=== PATIENT | female | born 1990 | race African-American/Black ===

== ENCOUNTER 2016-04-10 18:40 | Emergency (ER) | payer MEDICAID ==
[~2016-04-10] VITALS: Ht 149.9 cm; Wt 81.6 kg
[~2016-04-10 18:40] MED LIST: NORPTMEDS CO
[2016-04-10 19:31] LABS: Urine Bilirubin Negative (Negative); Urine Blood TRACE /uL (Negative); Urine Color Yellow (Yellow); Urine Glucose Normal (Normal); Urine Ketone Negative (Negative); Urine Mucus FEW (None Seen); Urine Nitrite Negative (Negative); Urine RBC <1 /hpf (0 - 4); Urine Squamous Epithelial Cell FEW /hpf (<5); Urine Urobilinogen Normal (Negative)
[2016-04-10 19:33] LABS: Basophils # (auto) 0 uL; Basophils % (auto) 0.4 % (0.0-2.0); DEFINITIVE VIEW TRANSMISSION; Eosinophils # (auto) 0.1 uL; Eosinophils % (auto) 1.7 % (0.0-7.0); Hemoglobin 11.1 g/dL (12.2-16.2); Lymphocytes # (auto) 2.9 uL; Lymphocytes % (auto) 42.6 % (10.0-50.0); Mean Corpuscular Hemoglobin 23.5 pg (28.0-32.0); Mean Corpuscular Hgb Conc. 30.9 g/dL (32.0-36.0); Mean Corpuscular Volume 75.8 fL (80.0-100.0); Mean Platelet Volume 6.9 fL (7.4-10.4); Monocytes # (auto) 0.3 uL; Monocytes % (auto) 4.1 % (0.0-12.0); Neutrophils # (auto) 3.5 uL; Neutrophils % (auto) 51.2 % (37.0-80.0); Platelet Count (auto) 385 10^3/uL (140-450); Red Cell Distribution Width 17.2 % (11.6-16.0); White Blood Cell 6.9 10^3/uL (4.4-10.8)
[2016-04-10 19:47] LABS: Albumin 3.5 g/dL (3.4-5.0); BUN/Creatinine Ratio 13.8; Calcium 8.4 mg/dL (8.5-10.1); Potassium 3.6 mmol/L (3.5-5.1)
[2016-04-10 19:49] LABS: Bilirubin, Total 0.1 mg/dL (0.2-1.0); Total Protein 7.7 g/dL (6.4-8.2)
[2016-04-10 19:59] LABS: Hypochromia Slight; Platelet Estimate Adequate
[2016-04-11] MEDS ORDERED: PANTOPRAZOLE 40 MG TAB PO ONE (08:30)
[2016-04-11 09:45] VITALS: BP 139/97
== END 2016-04-11 10:18 | disposition home or self-care (01) ==
LOC: ER 18:44
DX: K29.70 Gastritis, unspecified, without bleeding (principal); Z88.1 Allergy status to other antibiotic agents; I10 Essential (primary) hypertension
CPT/HCPCS: 36415; 74176; 80053; 81001; 81025; 83690; 85025

== ENCOUNTER 2016-07-29 11:42 | Emergency (ER) | payer MEDICAID ==
[~2016-07-29] VITALS: Ht 149.9 cm; Wt 81.6 kg
[2016-07-29 11:57] VITALS: BP 129/92
[2016-07-29 13:06] LABS: Basophils # (auto) 0 uL; Basophils % (auto) 0.2 % (0.0-2.0); DEFINITIVE VIEW TRANSMISSION; Eosinophils # (auto) 0.1 uL; Eosinophils % (auto) 2.4 % (0.0-7.0); Hematocrit 35.3 % (36.0-46.0); Hemoglobin 11.4 g/dL (12.2-16.2); Lymphocytes # (auto) 2.5 uL; Lymphocytes % (auto) 42.6 % (10.0-50.0); Mean Corpuscular Hemoglobin 24.2 pg (28.0-32.0); Mean Corpuscular Hgb Conc. 32.1 g/dL (32.0-36.0); Mean Corpuscular Volume 75.2 fL (80.0-100.0); Mean Platelet Volume 7.3 fL (7.4-10.4); Monocytes # (auto) 0.3 uL; Monocytes % (auto) 4.8 % (0.0-12.0); Neutrophils # (auto) 2.9 uL; Platelet Count (auto) 447 10^3/uL (140-450); Red Cell Distribution Width 16.7 % (11.6-16.0); White Blood Cell 5.8 10^3/uL (4.4-10.8)
[2016-07-29 13:11] LABS: Urine Bilirubin Negative (Negative); Urine Blood 1+ /uL (Negative); Urine Color Yellow (Yellow); Urine Glucose Normal (Normal); Urine Ketone 1+ (Negative); Urine Mucus FEW (None Seen); Urine Nitrite Negative (Negative); Urine RBC 1 /hpf (0 - 4); Urine Squamous Epithelial Cell FEW /hpf (<5); Urine Urobilinogen Normal (Negative)
[2016-07-29 13:32] LABS: Albumin 3.7 g/dL (3.4-5.0); BUN/Creatinine Ratio 15.8; Bilirubin, Total 0.5 mg/dL (0.2-1.0); Calcium 9.1 mg/dL (8.5-10.1); Potassium 3.3 mmol/L (3.5-5.1); Total Protein 7.3 g/dL (6.4-8.2)
== END 2016-07-29 21:31 | disposition left against medical advice (07) ==
LOC: ER 11:49
DX: R10.9 Unspecified abdominal pain (principal); Z53.21 Procedure and treatment not carried out due to patient leaving prior to being seen by health care provider
CPT/HCPCS: 36415; 80053; 81001; 82150; 83690; 84702; 85025

== ENCOUNTER 2017-05-31 18:38 | Emergency (ER) | payer MEDICAID ==
[~2017-05-31] VITALS: Ht 149.9 cm; Wt 72.6 kg
[2017-05-31 19:59] LABS: Urine Bacteria NONE SEEN /hpf (None Seen); Urine Blood Negative /uL (Negative); Urine Mucus FEW (None Seen); Urine Specific Gravity 1.026 (1.001-1.035); Urine WBC 2 /hpf (0 - 5)
[2017-05-31 22:02] LABS: Basophils # (auto) 0 uL; Eosinophils # (auto) 0.1 uL; Lymphocytes # (auto) 2.3 uL; Lymphocytes % (auto) 30.6 % (10.0-50.0); Monocytes # (auto) 0.3 uL; Neutrophils # (auto) 4.8 uL; Nucleated Red Blood Cells % 0.1 %; White Blood Cell 7.7 10^3/uL (4.4-10.8)
[2017-05-31 22:04] LABS: Basophils % (auto) 0.5 % (0.0-2.0); Eosinophils % (auto) 1.6 % (0.0-7.0); Hemoglobin 11.7 g/dL (12.2-16.2); Mean Corpuscular Hemoglobin 25.2 pg (28.0-32.0); Mean Corpuscular Hgb Conc. 32.4 g/dL (32.0-36.0); Mean Corpuscular Volume 77.8 fL (80.0-100.0); Monocytes % (auto) 4.5 % (0.0-12.0); Neutrophils % (auto) 62.8 % (37.0-80.0); Platelet Count (auto) 361 10^3/uL (140-450); Red Blood Cells 4.63 10^6/uL (4.0-5.20)
[2017-05-31 22:24] LABS: Albumin 3.8 g/dL (3.4-5.0); BUN/Creatinine Ratio 21.4; Calcium 9.3 mg/dL (8.5-10.1); Potassium 4.1 mmol/L (3.5-5.1)
[2017-05-31 22:27] LABS: Bilirubin, Total 0.2 mg/dL (0.2-1.0)
[2017-06-01] MEDS ORDERED: HYDROcodone-ACET 10/325MG TAB PO ONE
[2017-06-01] MEDS ORDERED: ONDANSETRON ODT 4 MG TAB PO ONE
[2017-06-01 02:05] VITALS: BP 123/77
== END 2017-06-01 05:00 | disposition home or self-care (01) ==
LOC: ER 18:38
DX: N93.8 Other specified abnormal uterine and vaginal bleeding (principal); N83.201 Unspecified ovarian cyst, right side; R11.2 Nausea with vomiting, unspecified; I10 Essential (primary) hypertension; Z87.440 Personal history of urinary (tract) infections
CPT/HCPCS: 36415; 74176; 76856; 80053; 81001; 81025; 84702; 85025; 86850; 86900; 86901; 99285; Q0162

== ENCOUNTER 2017-07-09 13:25 | Emergency (ER) | payer MEDICAID ==
[~2017-07-09] VITALS: Ht 149.9 cm; Wt 68.0 kg
[2017-07-09 14:56] LABS: Basophils # (auto) 0 uL; Eosinophils # (auto) 0.1 uL; Hematocrit 36.4 % (36.0-46.0); Monocytes # (auto) 0.3 uL; White Blood Cell 5.8 10^3/uL (4.4-10.8)
[2017-07-09 15:00] LABS: Albumin 3.8 g/dL (3.4-5.0); Anion Gap 7 (5-15); Basophils % (auto) 0.7 % (0.0-2.0); Blood Urea Nitrogen 13 mg/dL (7-18); Calcium 8.5 mg/dL (8.5-10.1); Carbon Dioxide 26 mmol/L (21-32); Chloride 107 mmol/L (98-107); Eosinophils % (auto) 1.9 % (0.0-7.0); Glucose 80 mg/dL (74-106); Hemoglobin 11.7 g/dL (12.2-16.2); Lymphocytes # (auto) 1.9 uL; Lymphocytes % (auto) 32.9 % (10.0-50.0); Magnesium 2.1 mg/dL (1.6-2.6); Mean Corpuscular Hgb Conc. 32.3 g/dL (32.0-36.0); Mean Corpuscular Volume 77.5 fL (80.0-100.0); Monocytes % (auto) 5.3 % (0.0-12.0); Neutrophils # (auto) 3.4 uL; Neutrophils % (auto) 59.2 % (37.0-80.0); Nucleated Red Blood Cells % 0.2 %; Platelet Count (auto) 383 10^3/uL (140-450); Potassium 3.8 mmol/L (3.5-5.1); Red Cell Distribution Width 15.6 % (11.8-14.3); Sodium 140 mmol/L (136-145)
[2017-07-09 15:02] LABS: Alanine Aminotransferase 15 U/L (13-56); Aspartate Aminotransferase 10 U/L (15-37); BUN/Creatinine Ratio 22.8; GFR African American 166 mL/min; GFR Non-African American 137 mL/min
[2017-07-09 15:07] LABS: Alkaline Phosphatase 54 U/L (45-117); Bilirubin, Total 0.3 mg/dL (0.2-1.0); Total Protein 8.3 g/dL (6.4-8.2)
[2017-07-09 18:07] VITALS: BP 148/88
[2017-07-09 19:02] LABS: Urine Bacteria NONE SEEN /hpf (None Seen); Urine Blood 2+ /uL (Negative); Urine Mucus FEW (None Seen); Urine Specific Gravity 1.028 (1.001-1.035); Urine WBC 1 /hpf (0 - 5)
== END 2017-07-09 18:23 | disposition home or self-care (01) ==
LOC: ER 13:30
DX: O03.9 Complete or unspecified spontaneous abortion without complication (principal); O16.1 Unspecified maternal hypertension, first trimester; O26.891 Other specified pregnancy related conditions, first trimester; I50.9 Heart failure, unspecified; R42 Dizziness and giddiness; Z88.1 Allergy status to other antibiotic agents; Z87.440 Personal history of urinary (tract) infections
CPT/HCPCS: 36415; 76801; 76817; 80053; 81001; 81025; 83735; 84484; 84702; 85025; 93005

== ENCOUNTER 2017-08-03 12:55 | Emergency (ER) | payer MEDICAID ==
[~2017-08-03] VITALS: Ht 149.9 cm; Wt 72.6 kg
[2017-08-03 14:26] LABS: Basophils # (auto) 0 uL; Eosinophils # (auto) 0.1 uL; Monocytes # (auto) 0.3 uL; Neutrophils # (auto) 4.8 uL
[2017-08-03 14:27] LABS: Basophils % (auto) 0.5 % (0.0-2.0); Eosinophils % (auto) 1.8 % (0.0-7.0); Hematocrit 34.9 % (36.0-46.0); Hemoglobin 11.2 g/dL (12.2-16.2); Lymphocytes # (auto) 1.7 uL; Lymphocytes % (auto) 24.5 % (10.0-50.0); Mean Corpuscular Hemoglobin 24.6 pg (28.0-32.0); Mean Corpuscular Hgb Conc. 32.1 g/dL (32.0-36.0); Mean Corpuscular Volume 76.6 fL (80.0-100.0); Monocytes % (auto) 4.4 % (0.0-12.0); Neutrophils % (auto) 68.8 % (37.0-80.0); Nucleated Red Blood Cells % 0.1 %; Platelet Count (auto) 372 10^3/uL (140-450); Red Blood Cells 4.56 10^6/uL (4.0-5.20); Red Cell Distribution Width 15.7 % (11.8-14.3); White Blood Cell 6.9 10^3/uL (4.4-10.8)
[2017-08-03 14:32] LABS: Albumin 3.6 g/dL (3.4-5.0); BUN/Creatinine Ratio 14.3; Bilirubin, Total 0.3 mg/dL (0.2-1.0); Calcium 8.4 mg/dL (8.5-10.1); Potassium 3.9 mmol/L (3.5-5.1); Total Protein 7.6 g/dL (6.4-8.2)
[2017-08-03 16:46] VITALS: BP 144/90
== END 2017-08-03 17:01 | disposition home or self-care (01) ==
LOC: ER 13:01
DX: R10.30 Lower abdominal pain, unspecified (principal); I11.0 Hypertensive heart disease with heart failure; I50.9 Heart failure, unspecified; Z88.1 Allergy status to other antibiotic agents
CPT/HCPCS: 36415; 80053; 84702; 85025

== ENCOUNTER 2017-12-03 09:24 | Emergency (ER) | payer MEDICAID ==
[~2017-12-03] VITALS: Ht 149.9 cm; Wt 72.6 kg
[2017-12-03 09:55] LABS: Urine Bacteria NONE SEEN /hpf (None Seen); Urine Blood Negative /uL (Negative); Urine Specific Gravity 1.017 (1.001-1.035); Urine WBC 2 /hpf (0 - 5)
[2017-12-03] MEDS ORDERED: SODIUM CHLORIDE 0.9% 1,000 ML IV ONE (10:01)
[2017-12-03] MEDS ORDERED: MECLIZINE HCL 25 MG TAB PO ONE (10:15)
[2017-12-03 10:29] LABS: Basophils # (auto) 0 uL; Eosinophils # (auto) 0.1 uL; Mean Corpuscular Volume 72.4 fL (80.0-100.0); Monocytes # (auto) 0.3 uL; Neutrophils # (auto) 3.1 uL; White Blood Cell 5.8 10^3/uL (4.4-10.8)
[2017-12-03 10:31] LABS: Basophils % (auto) 0.7 % (0.0-2.0); Eosinophils % (auto) 1.6 % (0.0-7.0); Hematocrit 32.8 % (36.0-46.0); Hemoglobin 10.5 g/dL (12.2-16.2); Lymphocytes # (auto) 2.2 uL; Lymphocytes % (auto) 38.2 % (10.0-50.0); Mean Corpuscular Hemoglobin 23.1 pg (28.0-32.0); Mean Corpuscular Hgb Conc. 31.9 g/dL (32.0-36.0); Monocytes % (auto) 5.8 % (0.0-12.0); Neutrophils % (auto) 53.7 % (37.0-80.0); Nucleated Red Blood Cells % 0.1 %; Platelet Count (auto) 402 10^3/uL (140-450); Red Blood Cells 4.54 10^6/uL (4.0-5.20); Red Cell Distribution Width 17.6 % (11.8-14.3)
[2017-12-03 10:48] LABS: Alanine Aminotransferase 15 U/L (13-56); Albumin 3.7 g/dL (3.4-5.0); Anion Gap 7 (5-15); Aspartate Aminotransferase 16 U/L (15-37); BUN/Creatinine Ratio 15.4; Blood Urea Nitrogen 10 mg/dL (7-18); Calcium 8.4 mg/dL (8.5-10.1); Carbon Dioxide 25 mmol/L (21-32); Chloride 104 mmol/L (98-107); GFR African American 142 mL/min; GFR Non-African American 117 mL/min; Glucose 79 mg/dL (74-106); Potassium 3.8 mmol/L (3.5-5.1); Sodium 136 mmol/L (136-145)
[2017-12-03 10:53] LABS: Alkaline Phosphatase 52 U/L (45-117); Bilirubin, Total 0.4 mg/dL (0.2-1.0); Total Protein 8.3 g/dL (6.4-8.2)
[2017-12-03 12:04] VITALS: BP 123/87
== END 2017-12-03 12:06 | disposition home or self-care (01) ==
LOC: ER 09:24
DX: R42 Dizziness and giddiness (principal); I11.0 Hypertensive heart disease with heart failure; I50.9 Heart failure, unspecified; Z88.1 Allergy status to other antibiotic agents
CPT/HCPCS: 36415; 71046; 80053; 81001; 81025; 82962; 83735; 83880; 84484; 85025; 93005; 96360

== ENCOUNTER 2018-03-02 12:02 | Emergency (ER) | payer SELFPAY ==
[~2018-03-02] VITALS: Ht 149.9 cm; Wt 72.6 kg
[2018-03-02 13:35] LABS: Basophils # (auto) 0 uL; Lymphocytes % (auto) 32.2 % (10.0-50.0); Mean Corpuscular Hemoglobin 22.6 pg (28.0-32.0); Mean Corpuscular Hgb Conc. 31.3 g/dL (32.0-36.0); Mean Corpuscular Volume 72.4 fL (80.0-100.0); Monocytes # (auto) 0.3 uL
[2018-03-02 13:36] LABS: Basophils % (auto) 0.4 % (0.0-2.0); Eosinophils # (auto) 0.2 uL; Eosinophils % (auto) 2.2 % (0.0-7.0); Hematocrit 35.2 % (36.0-46.0); Lymphocytes # (auto) 2.3 uL; Monocytes % (auto) 4.3 % (0.0-12.0); Neutrophils # (auto) 4.3 uL; Neutrophils % (auto) 60.9 % (37.0-80.0); Platelet Count (auto) 425 10^3/uL (140-450); Red Blood Cells 4.86 10^6/uL (4.0-5.20); Red Cell Distribution Width 17.6 % (11.8-14.3); White Blood Cell 7.1 10^3/uL (4.4-10.8)
[2018-03-02 13:40] LABS: Urine Bacteria NONE SEEN /hpf (None Seen); Urine Blood 1+ /uL (Negative); Urine Mucus FEW (None Seen); Urine Specific Gravity 1.029 (1.001-1.035); Urine WBC 2 /hpf (0 - 5)
[2018-03-02 13:55] LABS: Albumin 3.6 g/dL (3.4-5.0); Calcium 8.3 mg/dL (8.5-10.1); Potassium 3.5 mmol/L (3.5-5.1)
[2018-03-02 14:00] LABS: BUN/Creatinine Ratio 17.7; Bilirubin, Total 0.2 mg/dL (0.2-1.0)
[2018-03-02 14:28] VITALS: BP 105/69
== END 2018-03-02 15:13 | disposition home or self-care (01) ==
LOC: ER 12:16
DX: R11.2 Nausea with vomiting, unspecified (principal); I10 Essential (primary) hypertension; Z87.440 Personal history of urinary (tract) infections; Z88.1 Allergy status to other antibiotic agents
CPT/HCPCS: 36415; 80053; 81001; 81025; 84702; 85025

== ENCOUNTER 2018-06-01 20:47 | Emergency (ER) | payer SELFPAY ==
[~2018-06-01] VITALS: Ht 149.9 cm; Wt 63.5 kg
[2018-06-01 22:05] LABS: Basophils # (auto) 0 uL; Basophils % (auto) 0.6 % (0.0-2.0); Eosinophils # (auto) 0.1 uL; Monocytes # (auto) 0.3 uL; Neutrophils # (auto) 3.8 uL
[2018-06-01 22:07] LABS: Eosinophils % (auto) 1.9 % (0.0-7.0); Hematocrit 31.9 % (36.0-46.0); Hemoglobin 10.1 g/dL (12.2-16.2); Lymphocytes # (auto) 2.4 uL; Lymphocytes % (auto) 35.9 % (10.0-50.0); Mean Corpuscular Hemoglobin 22.4 pg (28.0-32.0); Mean Corpuscular Hgb Conc. 31.6 g/dL (32.0-36.0); Mean Corpuscular Volume 70.8 fL (80.0-100.0); Monocytes % (auto) 4.1 % (0.0-12.0); Neutrophils % (auto) 57.5 % (37.0-80.0); Nucleated Red Blood Cells % 0.2 %; Platelet Count (auto) 439 10^3/uL (140-450); Red Cell Distribution Width 18.2 % (11.8-14.3); White Blood Cell 6.6 10^3/uL (4.4-10.8)
[2018-06-01 22:22] LABS: Albumin 3.6 g/dL (3.4-5.0); BUN/Creatinine Ratio 20.4; Calcium 8.4 mg/dL (8.5-10.1); Potassium 3.6 mmol/L (3.5-5.1)
[2018-06-01 22:25] LABS: Bilirubin, Total 0.2 mg/dL (0.2-1.0); Total Protein 7.7 g/dL (6.4-8.2)
[2018-06-01 23:04] LABS: Urine Bacteria MOD /hpf (None Seen); Urine Blood 3+ /uL (Negative); Urine WBC 228 /hpf (0 - 5)
[2018-06-01 23:08] LABS: Urine Specific Gravity 1.025 (1.001-1.035)
[2018-06-02 03:14] LABS: Magnesium 2.1 mg/dL (1.6-2.6)
[2018-06-02 06:06] VITALS: BP 122/72
== END 2018-06-02 06:09 | disposition home or self-care (01) ==
LOC: ER 20:49
DX: N93.9 Abnormal uterine and vaginal bleeding, unspecified (principal); I10 Essential (primary) hypertension; Z88.1 Allergy status to other antibiotic agents
CPT/HCPCS: 36415; 80053; 81001; 81025; 82150; 83690; 83735; 84702; 85025

== ENCOUNTER → 2018-06-21 | Emergency (ER) | payer MEDICAID | END | disposition left against medical advice (07) | LOC: ER 18:24 | DX: N89.8 Other specified noninflammatory disorders of vagina (principal); Z53.21 Procedure and treatment not carried out due to patient leaving prior to being seen by health care provider ==

== ENCOUNTER 2018-08-16 16:44 | Emergency (ER) | payer MEDICAID ==
[~2018-08-16] VITALS: Ht 149.9 cm; Wt 74.4 kg
[2018-08-16 18:17] LABS: Eosinophils # (auto) 0.1 uL; Eosinophils % (auto) 1.8 % (0.0-7.0); Hematocrit 32.5 % (36.0-46.0); Mean Corpuscular Hemoglobin 22.6 pg (28.0-32.0); Mean Corpuscular Volume 72.3 fL (80.0-100.0); Monocytes # (auto) 0.3 uL; Monocytes % (auto) 4.7 % (0.0-12.0); Neutrophils # (auto) 3.9 uL; Red Blood Cells 4.49 10^6/uL (4.0-5.20)
[2018-08-16 18:19] LABS: Basophils # (auto) 0.1 uL; Basophils % (auto) 0.8 % (0.0-2.0); Hemoglobin 10.1 g/dL (12.2-16.2); Lymphocytes # (auto) 2.3 uL; Lymphocytes % (auto) 34.6 % (10.0-50.0); Mean Corpuscular Hgb Conc. 31.2 g/dL (32.0-36.0); Neutrophils % (auto) 58.1 % (37.0-80.0); Nucleated Red Blood Cells % 0.1 %; Platelet Count (auto) 380 10^3/uL (140-450); Red Cell Distribution Width 17.9 % (11.8-14.3); White Blood Cell 6.7 10^3/uL (4.4-10.8)
[2018-08-16 18:34] LABS: Albumin 3.5 g/dL (3.4-5.0); BUN/Creatinine Ratio 17.3; Calcium 8.8 mg/dL (8.5-10.1)
[2018-08-16 18:52] LABS: Bilirubin, Total 0.2 mg/dL (0.2-1.0); Total Protein 7.8 g/dL (6.4-8.2)
[2018-08-16 20:51] LABS: Urine Bacteria NONE SEEN /hpf (None Seen); Urine Blood Negative /uL (Negative); Urine Specific Gravity 1.008 (1.001-1.035); Urine WBC 1 /hpf (0 - 5)
[2018-08-16 23:36] VITALS: BP 132/81
[2018-08-17] MEDS: ACETAMINOPHEN/CODEINE#3 (300/30mg) TAB PO ONE ×2 (00:08→00:13)
== END 2018-08-17 01:12 | disposition home or self-care (01) ==
LOC: ER 16:44
DX: R10.33 Periumbilical pain (principal); I10 Essential (primary) hypertension; Z88.1 Allergy status to other antibiotic agents
CPT/HCPCS: 36415; 74176; 80053; 81001; 81025; 83690; 85025

== ENCOUNTER 2018-08-22 12:13 | Emergency (ER) | payer MEDICAID ==
[~2018-08-22] VITALS: Ht 149.9 cm; Wt 74.4 kg
[2018-08-22 12:56] LABS: Basophils # (auto) 0.1 uL; Basophils % (auto) 1.3 % (0.0-2.0); Eosinophils # (auto) 0.1 uL; Eosinophils % (auto) 1.4 % (0.0-7.0); Hematocrit 31.5 % (36.0-46.0); Hemoglobin 9.8 g/dL (12.2-16.2); Lymphocytes % (auto) 37.2 % (10.0-50.0); Mean Corpuscular Hemoglobin 22.5 pg (28.0-32.0); Mean Corpuscular Hgb Conc. 31.2 g/dL (32.0-36.0); Mean Corpuscular Volume 72.2 fL (80.0-100.0); Monocytes # (auto) 0.3 uL; Monocytes % (auto) 6.2 % (0.0-12.0); Neutrophils % (auto) 53.9 % (37.0-80.0); Nucleated Red Blood Cells % 0.1 %; Platelet Count (auto) 390 10^3/uL (140-450); Red Blood Cells 4.36 10^6/uL (4.0-5.20); Red Cell Distribution Width 17.5 % (11.8-14.3); White Blood Cell 5.5 10^3/uL (4.4-10.8)
[2018-08-22 13:17] LABS: Urine Bacteria NONE SEEN /hpf (None Seen); Urine Blood 2+ /uL (Negative); Urine Budding Yeast MODERATE /hpf (None Seen); Urine WBC 72 /hpf (0 - 5)
[2018-08-22 13:34] LABS: Albumin 3.6 g/dL (3.4-5.0); Potassium 3.3 mmol/L (3.5-5.1)
[2018-08-22 13:37] LABS: BUN/Creatinine Ratio 15.3; Bilirubin, Total 0.2 mg/dL (0.2-1.0); Total Protein 7.7 g/dL (6.4-8.2)
[2018-08-22] MEDS ORDERED: cefTRIAXone 1GM/50ML D5W 50 ML IV ONE (14:30)
[2018-08-22] MEDS ORDERED: POTASSIUM EFFERVESENT TAB 25 MEQ PO ONE (14:30)
[2018-08-22 14:45] VITALS: BP 103/44
== END 2018-08-22 16:17 | disposition home or self-care (01) ==
LOC: ER 12:13
DX: N39.0 Urinary tract infection, site not specified (principal); E87.6 Hypokalemia; I10 Essential (primary) hypertension; Z88.1 Allergy status to other antibiotic agents
CPT/HCPCS: 36415; 80053; 81001; 81025; 84702; 85025; 96365; 99283; J0696; J7030

== ENCOUNTER 2019-12-07 22:23 | Emergency (ER) | payer MEDICAID ==
[~2019-12-07] VITALS: Ht 160 cm; Wt 81.6 kg
[2019-12-07 22:28] VITALS: BP 106/29
[2019-12-07 22:59] LABS: Basophils # (auto) 0.1 10 ^3/uL (0-0.2); Eosinophils # (auto) 0.2 10 ^3/uL (0-0.8); Eosinophils % (auto) 1.6 % (0.0-7.0); Hemoglobin 12.7 g/dL (12.2-16.2); Monocytes # (auto) 0.6 10 ^3/uL (0-1.3); Monocytes % (auto) 6.2 % (0.0-12.0); Red Cell Distribution Width 17.9 % (11.8-14.3)
[2019-12-07] MEDS ORDERED: LORazepam 2MG/ML-1ML VIAL IV ONE (23:00)
[2019-12-07 23:01] LABS: Basophils % (auto) 0.7 % (0.0-2.0); Hematocrit 39.8 % (36.0-46.0); Lymphocytes # (auto) 3.2 10 ^3/uL (0.4-5.4); Lymphocytes % (auto) 31.8 % (10.0-50.0); Mean Corpuscular Hemoglobin 24.2 pg (28.0-32.0); Mean Corpuscular Hgb Conc. 31.9 g/dL (32.0-36.0); Mean Corpuscular Volume 75.8 fL (80.0-100.0); Neutrophils % (auto) 59.7 % (37.0-80.0); Platelet Count (auto) 527 10^3/uL (140-450); Red Blood Cells 5.25 10^6/uL (4.0-5.20)
[2019-12-07 23:19] LABS: Albumin 4.3 g/dL (3.4-5.0); Anion Gap 11 (5-15); Blood Urea Nitrogen 12 mg/dL (7-18); Calcium 9.5 mg/dL (8.5-10.1); Carbon Dioxide 22 mmol/L (21-32); Chloride 105 mmol/L (98-107); Glucose 89 mg/dL (74-106); Potassium 3.5 mmol/L (3.5-5.1); Sodium 138 mmol/L (136-145)
[2019-12-07 23:20] LABS: Urine Bacteria FEW /hpf (None Seen); Urine Blood TRACE /uL (Negative); Urine Mucus FEW (None Seen); Urine WBC 3 /hpf (0 - 5)
[2019-12-07 23:21] LABS: Alanine Aminotransferase 16 U/L (13-56); Aspartate Aminotransferase 13 U/L (15-37); BUN/Creatinine Ratio 16.9; GFR African American 126 mL/min; GFR Non-African American 104 mL/min
[2019-12-07 23:23] LABS: Amphetamine Screen, Urine NEGATIVE (NEGATIVE); Barbiturate Scree,Urine NEGATIVE (NEGATIVE); Benzodiazephine Screen, Urine NEGATIVE (NEGATIVE); Cannabinoid Screen, Urine NEGATIVE (NEGATIVE); Cocaine Screen, Urine NEGATIVE (NEGATIVE); Opiate Scree,Urine NEGATIVE (NEGATIVE); Phencyclidine Screen, Urine NEGATIVE (NEGATIVE)
[2019-12-07 23:23] LABS: INR 0.97 (0.9-1.15); Partial Thromboplastin Time 25.8 sec (23.0-31.2)
[2019-12-07 23:26] LABS: Alkaline Phosphatase 57 U/L (45-117); Bilirubin, Total 0.2 mg/dL (0.2-1.0); Total Protein 9.2 g/dL (6.4-8.2)
[2019-12-08] MEDS ORDERED: ONDANSETRON HCL 4 MG/2 ML VIAL IV ONE
[2019-12-08] MEDS ORDERED: ACETAMINOPHEN 325 MG TAB PO ONE
== END 2019-12-08 01:04 | disposition home or self-care (01) ==
LOC: ER 22:23
DX: F10.920 Alcohol use, unspecified with intoxication, uncomplicated (principal); F41.9 Anxiety disorder, unspecified
CPT/HCPCS: 36415; 80053; 80307; 81001; 81025; 83735; 83880; 84443; 84484; 85025; 85379; 85610; 85730; 96374; 96375; 99284; J2060; J2405

== ENCOUNTER 2019-12-23 17:52 | Emergency (ER) | payer MEDICAID ==
[~2019-12-23] VITALS: Ht 149.9 cm; Wt 78.5 kg
[2019-12-23 18:56] LABS: Urine Bacteria NONE SEEN /hpf (None Seen); Urine Blood 3+ /uL (Negative); Urine WBC 75 /hpf (0 - 5)
[2019-12-23 18:59] LABS: Urine Specific Gravity 1.029 (1.001-1.035)
[2019-12-23 19:37] LABS: Basophils # (auto) 0 10 ^3/uL (0-0.2); Eosinophils # (auto) 0.2 10 ^3/uL (0-0.8); Hemoglobin 11.4 g/dL (12.2-16.2); Lymphocytes # (auto) 1.9 10 ^3/uL (0.4-5.4); Lymphocytes % (auto) 31.9 % (10.0-50.0); Mean Corpuscular Hemoglobin 24.5 pg (28.0-32.0); Monocytes # (auto) 0.3 10 ^3/uL (0-1.3); Neutrophils # (auto) 3.6 10 ^3/uL (1.6-8.6)
[2019-12-23 19:40] LABS: Basophils % (auto) 0.5 % (0.0-2.0); Eosinophils % (auto) 2.7 % (0.0-7.0); Mean Corpuscular Hgb Conc. 32.5 g/dL (32.0-36.0); Mean Corpuscular Volume 75.4 fL (80.0-100.0); Monocytes % (auto) 5.3 % (0.0-12.0); Neutrophils % (auto) 59.6 % (37.0-80.0); Nucleated Red Blood Cells % 0.1 %; Platelet Count (auto) 381 10^3/uL (140-450); Red Blood Cells 4.64 10^6/uL (4.0-5.20); Red Cell Distribution Width 17.6 % (11.8-14.3)
[2019-12-23 21:24] VITALS: BP 143/80
[2019-12-23] MEDS ORDERED: ACETAMINOPHEN 325 MG TAB PO ONE (21:30)
[2019-12-23 23:41] LABS: Albumin 3.8 g/dL (3.4-5.0); BUN/Creatinine Ratio 17.2; Calcium 8.9 mg/dL (8.5-10.1); Potassium 3.7 mmol/L (3.5-5.1)
[2019-12-23 23:44] LABS: Bilirubin, Total 0.3 mg/dL (0.2-1.0); Total Protein 8.2 g/dL (6.4-8.2)
== END 2019-12-23 22:49 | disposition left against medical advice (07) ==
LOC: ER 17:52
DX: O99.011 Anemia complicating pregnancy, first trimester (principal); O23.41 Unspecified infection of urinary tract in pregnancy, first trimester; I10 Essential (primary) hypertension; Z3A.01 Less than 8 weeks gestation of pregnancy; Z88.1 Allergy status to other antibiotic agents
CPT/HCPCS: 36415; 76856; 80053; 81001; 84702; 85025

== ENCOUNTER 2021-03-07 09:26 | Emergency (ER) | payer MEDICAID ==
[~2021-03-07] VITALS: Ht 149.9 cm; Wt 81.6 kg
[2021-03-07 10:19] VITALS: BP 145/97
[2021-03-07 10:24] LABS: Basophils # (auto) 0.1 10 ^3/uL (0-0.2); Basophils % (auto) 1.3 % (0.0-2.0); Eosinophils # (auto) 0.1 10 ^3/uL (0-0.8); Eosinophils % (auto) 1.4 % (0.0-7.0); Hematocrit 33.7 % (36.0-46.0); Hemoglobin 10.8 g/dL (12.2-16.2); Lymphocytes # (auto) 1.7 10 ^3/uL (0.4-5.4); Lymphocytes % (auto) 32.3 % (10.0-50.0); Mean Corpuscular Hemoglobin 22.6 pg (28.0-32.0); Mean Corpuscular Hgb Conc. 32.1 g/dL (32.0-36.0); Mean Corpuscular Volume 70.4 fL (80.0-100.0); Monocytes # (auto) 0.2 10 ^3/uL (0-1.3); Monocytes % (auto) 3.7 % (0.0-12.0); Neutrophils # (auto) 3.2 10 ^3/uL (1.6-8.6); Neutrophils % (auto) 61.3 % (37.0-80.0); Red Blood Cells 4.79 10^6/uL (4.0-5.20); Red Cell Distribution Width 18.2 % (11.8-14.3); White Blood Cell 5.2 10^3/uL (4.4-10.8)
[2021-03-07 10:33] LABS: Calcium 8.4 mg/dL (8.5-10.1); Potassium 3.5 mmol/L (3.5-5.1)
[2021-03-07 10:38] LABS: BUN/Creatinine Ratio 17.7
== END 2021-03-07 11:30 | disposition left against medical advice (07) ==
LOC: ER 09:26
DX: R42 Dizziness and giddiness (principal); R51.9 Headache, unspecified; I10 Essential (primary) hypertension; Z86.2 Personal history of diseases of the blood and blood-forming organs and certain disorders involving the immune mechanism
CPT/HCPCS: 36415; 80048; 81002; 81025; 83880; 84484; 84702; 85025

== ENCOUNTER 2021-03-29 12:18 | Inpatient (IN) | payer MEDICAID ==
[~2021-03-29] VITALS: Ht 165.1 cm; Wt 86.7 kg
[2021-03-29 13:25] LABS: Albumin 3.7 g/dL (3.4-5.0); Calcium 8.8 mg/dL (8.5-10.1); Potassium 3.8 mmol/L (3.5-5.1)
[2021-03-29 13:30] LABS: BUN/Creatinine Ratio 13.4; Bilirubin, Total 0.3 mg/dL (0.2-1.0); Total Protein 7.9 g/dL (6.4-8.2)
[2021-03-29 13:31] LABS: Basophils # (auto) 0 10 ^3/uL (0-0.2); Basophils % (auto) 0.5 % (0.0-2.0); Eosinophils # (auto) 0.1 10 ^3/uL (0-0.8); Monocytes # (auto) 0.4 10 ^3/uL (0-1.3); Neutrophils # (auto) 3.7 10 ^3/uL (1.6-8.6); Nucleated Red Blood Cells % 0.1 %; White Blood Cell 6.3 10^3/uL (4.4-10.8)
[2021-03-29 13:33] LABS: Eosinophils % (auto) 1.7 % (0.0-7.0); Hematocrit 33.3 % (36.0-46.0); Hemoglobin 10.5 g/dL (12.2-16.2); Lymphocytes # (auto) 2.1 10 ^3/uL (0.4-5.4); Mean Corpuscular Hemoglobin 22.3 pg (28.0-32.0); Mean Corpuscular Hgb Conc. 31.6 g/dL (32.0-36.0); Monocytes % (auto) 6.5 % (0.0-12.0); Neutrophils % (auto) 58.3 % (37.0-80.0); Red Blood Cells 4.72 10^6/uL (4.0-5.20); Red Cell Distribution Width 17.8 % (11.8-14.3)
[2021-03-29 13:42] LABS: Mean Corpuscular Volume 70.6 fL (80.0-100.0)
[2021-03-29] MEDS ORDERED: NITROGLYCERIN 0.4 MG SL TAB SL ONE (16:00)
[2021-03-29] MEDS ORDERED: ASPirin 81 mg TAB PO ONE (16:00)
[2021-03-30] MEDS ORDERED: ONDANSETRON HCL 4 MG/2 ML VIAL IV PRN (00:15)
[2021-03-30] MEDS ORDERED: MORPHINE SULFATE INJECTION 2 MG/ML SYRG IV PRN ×2 (00:15→19:00)
[2021-03-30] MEDS ORDERED: NITROGLYCERIN 0.4 MG SL TAB SL PRN (00:15)
[2021-03-30 07:29] LABS: Calcium 8.7 mg/dL (8.5-10.1); Potassium 3.8 mmol/L (3.5-5.1)
[2021-03-30 07:33] LABS: BUN/Creatinine Ratio 20.7
[2021-03-30] MEDS: ASPirin-EC 81 mg tab PO SCH (09:16)
[2021-03-30] MEDS: ENOXAPARIN SOD 40 MG/0.4 ML SYRINGE SC SCH (09:16)
[2021-03-30] MEDS ORDERED: ACETAMINOPHEN 325 MG TAB PO PRN (19:00)
[2021-03-30] MEDS: HYDROcodone-ACET 5/325MG TAB PO PRN (20:12)
[2021-03-30 22:00] VITALS: BP 128/83
[2021-03-30] MEDS ORDERED: ATORVASTATIN 20 MG TAB PO SCH (22:00)
[2021-03-30 22:04] LABS: Amphetamine Screen, Urine NEGATIVE (NEGATIVE); Barbiturate Scree,Urine NEGATIVE (NEGATIVE); Benzodiazephine Screen, Urine NEGATIVE (NEGATIVE); Cannabinoid Screen, Urine NEGATIVE (NEGATIVE); Cocaine Screen, Urine NEGATIVE (NEGATIVE); Opiate Scree,Urine NEGATIVE (NEGATIVE); Phencyclidine Screen, Urine NEGATIVE (NEGATIVE)
[2021-03-30] MEDS ORDERED: PNEUMOCOCCAL VACC POLYS 25 MCG/0.5 ML VIAL IM ONE (23:45)
[2021-03-30] MEDS ORDERED: INFLUENZA QUAD 2021-2022 0.5 ML SYRG IM ONE (23:45)
[2021-03-31] MEDS ORDERED: FERR325T20 PO (00:02)
[2021-03-31] MEDS ORDERED: PROP40TA59 PO (00:02)
[2021-03-31 05:00] VITALS: BP 127/80
[2021-03-31] MEDS: HYDROcodone-ACET 5/325MG TAB PO PRN ×2 (05:18→13:05)
[2021-03-31 07:40] LABS: Basophils # (auto) 0 10 ^3/uL (0-0.2); Eosinophils # (auto) 0.1 10 ^3/uL (0-0.8); Eosinophils % (auto) 2.2 % (0.0-7.0); Lymphocytes # (auto) 2.1 10 ^3/uL (0.4-5.4); Monocytes # (auto) 0.3 10 ^3/uL (0-1.3); Neutrophils # (auto) 2.4 10 ^3/uL (1.6-8.6)
[2021-03-31 07:42] LABS: Basophils % (auto) 0.8 % (0.0-2.0); Hemoglobin 10.7 g/dL (12.2-16.2); Lymphocytes % (auto) 42.5 % (10.0-50.0); Mean Corpuscular Hemoglobin 22.3 pg (28.0-32.0); Mean Corpuscular Hgb Conc. 31.5 g/dL (32.0-36.0); Mean Corpuscular Volume 70.6 fL (80.0-100.0); Monocytes % (auto) 5.6 % (0.0-12.0); Neutrophils % (auto) 48.9 % (37.0-80.0); Nucleated Red Blood Cells % 0.1 %; Red Blood Cells 4.82 10^6/uL (4.0-5.20); Red Cell Distribution Width 18.3 % (11.8-14.3)
[2021-03-31 08:00] VITALS: BP 127/80
[2021-03-31 09:00] VITALS: BP 136/85
[2021-03-31] MEDS: ASPirin-EC 81 mg tab PO SCH (09:21)
[2021-03-31] MEDS: ENOXAPARIN SOD 40 MG/0.4 ML SYRINGE SC SCH (09:22)
[2021-03-31 13:00] VITALS: BP 113/73
[2021-03-31 17:00] VITALS: BP 121/74
== END 2021-03-31 18:45 | disposition home or self-care (01) | DRG 203 ==
LOC: ER 12:18 → TELE 03-30 00:22 → TELE-CENTR 03-30 18:36
PROVIDERS: ADMIT Hospitalist; ATTEND Hospitalist
DX: R07.89 Other chest pain (principal); I11.0 Hypertensive heart disease with heart failure; I50.9 Heart failure, unspecified; D64.9 Anemia, unspecified; R20.0 Anesthesia of skin; Z20.822 Contact with and (suspected) exposure to COVID-19; Z87.440 Personal history of urinary (tract) infections; Z86.73 Personal history of transient ischemic attack (TIA), and cerebral infarction without residual deficits
CPT/HCPCS: 36415; 71046; 72125; 80048; 80053; 80061; 80307; 80320; 81025; 83735; 84484; 85025; 87081; 87426; 93005; 93306; 96374; G0378; J2405

== ENCOUNTER 2021-10-15 16:22 | Inpatient (IN) | payer MEDICAID ==
[~2021-10-15] VITALS: Ht 167.6 cm; Wt 105.0 kg
[~2021-10-15 16:22] MED LIST changes: +FERR325T20 PO; -NORPTMEDS CO; +PROP40TA59 PO
[2021-10-15 17:36] LABS: Basophils # (auto) 0 10 ^3/uL (0-0.2); Basophils % (auto) 0.3 % (0.0-2.0); Eosinophils # (auto) 0.1 10 ^3/uL (0-0.8); Monocytes # (auto) 0.6 10 ^3/uL (0-1.3); White Blood Cell 9.8 10^3/uL (4.4-10.8)
[2021-10-15 17:38] LABS: Eosinophils % (auto) 1.5 % (0.0-7.0); Hematocrit 33.2 % (36.0-46.0); Hemoglobin 10.2 g/dL (12.2-16.2); Lymphocytes # (auto) 1.1 10 ^3/uL (0.4-5.4); Lymphocytes % (auto) 11.3 % (10.0-50.0); Mean Corpuscular Hemoglobin 21.2 pg (28.0-32.0); Mean Corpuscular Hgb Conc. 30.8 g/dL (32.0-36.0); Monocytes % (auto) 6.4 % (0.0-12.0); Neutrophils # (auto) 7.8 10 ^3/uL (1.6-8.6); Neutrophils % (auto) 80.5 % (37.0-80.0); Red Blood Cells 4.81 10^6/uL (4.0-5.20); Red Cell Distribution Width 19.3 % (11.8-14.3)
[2021-10-15 17:51] LABS: Albumin 3.5 g/dL (3.4-5.0); Potassium 3.8 mmol/L (3.5-5.1)
[2021-10-15 17:55] LABS: BUN/Creatinine Ratio 14.3; Bilirubin, Total 0.4 mg/dL (0.2-1.0); Total Protein 7.8 g/dL (6.4-8.2)
[2021-10-15] MEDS ORDERED: NITROGLYCERIN 0.4 MG SL TAB SL ONE (20:00)
[2021-10-15] MEDS ORDERED: ACETAMINOPHEN 325 MG TAB PO ONE (22:00)
[2021-10-16] MEDS ORDERED: NITROGLYCERIN 0.4 MG SL TAB SL PRN (02:45)
[2021-10-16] MEDS ORDERED: ACETAMINOPHEN 325 MG TAB PO PRN (02:45)
[2021-10-16] MEDS ORDERED: MORPHINE SULFATE INJ 2 MG/ml SYRG IV PRN (02:45)
[2021-10-16] MEDS ORDERED: ONDANSETRON HCL 4 MG/2 ML VIAL IV PRN (02:45)
[2021-10-16] MEDS ORDERED: TEMAZEPAM 15 MG CAP PO PRN (02:45)
[2021-10-16 09:59] LABS: Urine Bacteria FEW /hpf (None Seen); Urine Blood 1+ /uL (Negative); Urine Hyaline Cast FEW /lpf (0 - 2); Urine Mucus FEW (None Seen); Urine Specific Gravity 1.028 (1.001-1.035); Urine WBC 3 /hpf (0 - 5)
[2021-10-16] MEDS: LISINOPRIL 10 MG TAB PO SCH ×2 (10:00→10:59)
[2021-10-16] MEDS ORDERED: PANTOPRAZOLE 40 MG TAB PO SCH (10:00)
[2021-10-16] MEDS ORDERED: NIFEdipine ER 30 MG TAB PO SCH (10:00)
[2021-10-16] MEDS ORDERED: APIXABAN 5 MG TAB PO SCH (10:00)
[2021-10-16 10:22] LABS: Alcohol, Urine < 3.0 mg/dL (0-10); Barbiturate Scree,Urine NEGATIVE (NEGATIVE); Cannabinoid Screen, Urine NEGATIVE (NEGATIVE)
[2021-10-16 10:24] LABS: Amphetamine Screen, Urine NEGATIVE (NEGATIVE); Benzodiazephine Screen, Urine NEGATIVE (NEGATIVE); Cocaine Screen, Urine NEGATIVE (NEGATIVE); Opiate Scree,Urine NEGATIVE (NEGATIVE); Phencyclidine Screen, Urine NEGATIVE (NEGATIVE)
[2021-10-16] MEDS ORDERED: APIX5TAB PO (11:09)
[2021-10-16] MEDS ORDERED: LISI-716 PO (11:09)
[2021-10-16 16:00] VITALS: BP 113/70
== END 2021-10-16 16:49 | disposition home or self-care (01) | DRG 203 ==
LOC: ER 16:22 → EDUNIT# 16:22 → EDBD 16:22 → TELE 10-16 02:37
PROVIDERS: ADMIT Nurse Practitioner; ATTEND Internal Medicine Pulmonary Disease
DX: R07.89 Other chest pain (principal); D68.9 Coagulation defect, unspecified; I50.9 Heart failure, unspecified; I11.0 Hypertensive heart disease with heart failure; D64.9 Anemia, unspecified; E66.9 Obesity, unspecified; Z20.822 Contact with and (suspected) exposure to COVID-19; G40.909 Epilepsy, unspecified, not intractable, without status epilepticus; Z80.1 Family history of malignant neoplasm of trachea, bronchus and lung; Z86.718 Personal history of other venous thrombosis and embolism; Z86.73 Personal history of transient ischemic attack (TIA), and cerebral infarction without residual deficits; Z80.3 Family history of malignant neoplasm of breast; Z80.49 Family history of malignant neoplasm of other genital organs; Z82.49 Family history of ischemic heart disease and other diseases of the circulatory system; Z83.3 Family history of diabetes mellitus; Z68.37 Body mass index [BMI] 37.0-37.9, adult; Z88.8 Allergy status to other drugs, medicaments and biological substances
CPT/HCPCS: 36415; 71045; 80053; 80307; 81001; 81025; 83735; 83880; 84484; 85025; 85379; 87804; 93005; G0378

== ENCOUNTER 2022-05-14 16:29 | Emergency (ER) | payer MEDICAID ==
[~2022-05-14] VITALS: Ht 162.6 cm; Wt 90.0 kg
[~2022-05-14 16:29] MED LIST changes: +APIX5TAB PO; +LISI-716 PO
[2022-05-14 17:28] LABS: Urine Bacteria NONE SEEN /hpf (None Seen); Urine Blood 1+ /uL (Negative); Urine Mucus FEW (None Seen); Urine Specific Gravity 1.028 (1.001-1.035); Urine WBC 2 /hpf (0 - 5)
[2022-05-14 17:28] LABS: Basophils # (auto) 0 10 ^3/uL (0-0.2); Eosinophils # (auto) 0.1 10 ^3/uL (0-0.8); Eosinophils % (auto) 1.9 % (0.0-7.0); Hematocrit 36.8 % (36.0-46.0); Hemoglobin 11.7 g/dL (12.2-16.2); Monocytes # (auto) 0.5 10 ^3/uL (0-1.3); Nucleated Red Blood Cells % 0.1 %; Red Cell Distribution Width 15.9 % (11.8-14.3)
[2022-05-14 17:29] LABS: Basophils % (auto) 0.5 % (0.0-2.0); Lymphocytes # (auto) 2.3 10 ^3/uL (0.4-5.4); Lymphocytes % (auto) 30.6 % (10.0-50.0); Mean Corpuscular Hemoglobin 23.8 pg (28.0-32.0); Mean Corpuscular Hgb Conc. 31.7 g/dL (32.0-36.0); Monocytes % (auto) 6.2 % (0.0-12.0); Neutrophils # (auto) 4.6 10 ^3/uL (1.6-8.6); Neutrophils % (auto) 60.8 % (37.0-80.0); Red Blood Cells 4.91 10^6/uL (4.0-5.20); White Blood Cell 7.6 10^3/uL (4.4-10.8)
[2022-05-14] MEDS ORDERED: CEPH-510 PO (20:02)
[2022-05-14 20:24] VITALS: BP 134/87
== END 2022-05-14 20:26 | disposition home or self-care (01) ==
LOC: ER 16:29
DX: O23.41 Unspecified infection of urinary tract in pregnancy, first trimester (principal); O26.891 Other specified pregnancy related conditions, first trimester; N39.0 Urinary tract infection, site not specified; I11.0 Hypertensive heart disease with heart failure; I50.9 Heart failure, unspecified; R10.2 Pelvic and perineal pain; Z3A.01 Less than 8 weeks gestation of pregnancy
CPT/HCPCS: 36415; 80320; 81001; 81025; 84702; 85025

== ENCOUNTER 2022-09-20 20:34 | Observation (INO) | payer MEDICAID ==
[~2022-09-20] VITALS: Ht 149.9 cm; Wt 93.4 kg
[~2022-09-20 20:34] MED LIST changes: +CEPH-510 PO; -LISI-716 PO; +LISI10TA34 PO; -PROP40TA59 PO; +PROP40TA6 PO
[2022-09-20 21:14] LABS: Urine Bacteria FEW /hpf (None Seen); Urine Blood TRACE /uL (Negative); Urine Mucus FEW (None Seen); Urine WBC 2 /hpf (0 - 5)
[2022-09-20] MEDS ORDERED: PREN-96 PO (22:06)
[2022-09-20] MEDS ORDERED: ASPI-543 PO (22:06)
== END 2022-09-20 22:22 | disposition home or self-care (01) ==
LOC: LDRP 20:34
PROVIDERS: ADMIT Obstetrics & Gynecology; ATTEND Obstetrics & Gynecology
DX: O62.9 Abnormality of forces of labor, unspecified (principal); O21.2 Late vomiting of pregnancy; O26.892 Other specified pregnancy related conditions, second trimester; R42 Dizziness and giddiness; R51.9 Headache, unspecified; O99.412 Diseases of the circulatory system complicating pregnancy, second trimester; I50.9 Heart failure, unspecified; O99.322 Drug use complicating pregnancy, second trimester; F12.90 Cannabis use, unspecified, uncomplicated; Z3A.25 25 weeks gestation of pregnancy
CPT/HCPCS: 59025; 81001; 81002; 94760; G0378

== ENCOUNTER 2024-06-30 12:51 | Emergency (ER) | payer MEDICAID ==
[~2024-06-30] VITALS: Ht 170.2 cm; Wt 91.0 kg
[~2024-06-30 12:51] MED LIST changes: +ASPI-543 PO; +PREN-96 PO
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
[2024-06-30] MEDS: KETOROLAC TROMETH 30 MG/ML 1ML VIAL IV ONE (14:32)
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
[2024-06-30] MEDS ORDERED: IBUP-1456 PO (15:34)
[2024-06-30] MEDS ORDERED: METH-1182 PO (15:34)
[2024-06-30 15:46] VITALS: BP 149/80; PULSE 94; RESP 17; TEMP 98.4; O2SAT 96
== END 2024-06-30 15:51 | disposition home or self-care (01) ==
LOC: ER 12:51 → EDBD 12:51 → ER 15:49
DX: S06.9X1A Unspecified intracranial injury with loss of consciousness of 30 minutes or less, initial encounter (principal); S16.1XXA Strain of muscle, fascia and tendon at neck level, initial encounter; S83.8X1A Sprain of other specified parts of right knee, initial encounter; S60.221A Contusion of right hand, initial encounter; I10 Essential (primary) hypertension; Z79.82 Long term (current) use of aspirin; Z79.899 Other long term (current) drug therapy; Z87.440 Personal history of urinary (tract) infections; Z98.890 Other specified postprocedural states; Z88.1 Allergy status to other antibiotic agents; V89.2XXA Person injured in unspecified motor-vehicle accident, traffic, initial encounter; Y93.I9 Activity, other involving external motion; Y92.488 Other paved roadways as the place of occurrence of the external cause; Y99.8 Other external cause status
CPT/HCPCS: 70450; 72040; 73130; 73560; 96374; 99285; J1885; 96372

== ENCOUNTER 2024-12-14 11:04 | Outpatient (CLI) | payer MEDICAID ==
[~2024-12-14 11:04] MED LIST changes: +IBUP-1456 PO; +METH-1182 PO
--- NOTE | 2024-12-19 10:30 | DVHSR ---
APPROVED REPORT EXAM: Two-dimensional and M-mode echocardiogram with Doppler and color Doppler. DIMENSIONS LVDd4.5 (3.8-5.7cm)LA (2D)3.5 (1.9-4.0cm)Aortic Root3.4 (2.0-3.7cm) LVDs2.9 (2.5-4.0cm)LA (MM) (1.9-4.0cm)Aortic Cusp Exc1.8 (1.5-2.0cm) EF (%) 65.0 (55-70%)Rt. Atrium3.2 (1.9-4.0cm)Asc. Aorta cm IVSd1.1 (0.7-1.1cm)RV (D) (1.8-2.4cm) PWd1.0 (0.7-1.1cm) Mitral Valve MitralMitral Stenosis E wave0.80m/sMV Mean GR.mmHg A wave0.90m/sMV Peak GR.mmHg E/A ratio0.92D MVAcm2 Aortic Valve Aortic ValveAortic Stenosis V10.90m/Dioni Mean GR.5mmHg V21.30m/Dioni Peak GR.8mmHg LVOT Diameter2.0 (1.8-2.4cm)Doppler AVA2.17cm2 Pulmonic Valve V20.60m/s LEFT VENTRICLE The left ventricle is normal size. The left ventricle is normal in structure and function. The Ejection Fraction is within normal limits. RIGHT VENTRICLE The right ventricle is normal size. ATRIA The left atrial size is normal. The right atrium size is normal. The interatrial septum is intact with no evidence for an atrial septal defect. MITRAL VALVE The mitral valve is normal in structure and function. There is no mitral valve regurgitation noted. PULMONIC VALVE The pulmonic valve is not well visualized. TRICUSPID VALVE The tricuspid valve is grossly normal. AORTIC VALVE The aortic valve opens well. No aortic regurgitation is present. GREAT VESSELS The aortic root is normal size. PERICARDIAL EFFUSION There is no pericardial effusion. Conclusion EF >55%
== END 2024-12-14 17:00 | disposition home or self-care (01) ==
LOC: Rad HDHVI 11:04
PROVIDERS: ATTEND Internal Medicine Cardiovascular Disease
DX: I11.0 Hypertensive heart disease with heart failure (principal); I50.9 Heart failure, unspecified
CPT/HCPCS: 93306